=== PATIENT | male | born 1960 ===

== ENCOUNTER 2020-09-29 12:49 | Outpatient (CLI) | payer BC | END 2020-09-29 12:50 | disposition home or self-care (01) | LOC: CSHMRI 12:49 | PROVIDERS: ATTEND Orthopaedic Surgery | DX: M54.5 Low back pain (principal); M25.511 Pain in right shoulder ==

== ENCOUNTER 2022-03-23 13:07 | Outpatient (CLI) | payer BC | END 2022-03-23 13:08 | disposition home or self-care (01) | LOC: CSHLAB 13:07 | PROVIDERS: ATTEND Chiropractor | DX: Z20.822 Contact with and (suspected) exposure to COVID-19 (principal) | CPT/HCPCS: 87811 ==

== ENCOUNTER 2022-03-28 12:12 | Outpatient (CLI) | payer BC | END 2022-03-28 12:13 | disposition home or self-care (01) | LOC: CSHCP 12:12 | PROVIDERS: ATTEND Chiropractor | DX: I25.9 Chronic ischemic heart disease, unspecified (principal); R06.02 Shortness of breath; D64.9 Anemia, unspecified; E11.9 Type 2 diabetes mellitus without complications; R94.2 Abnormal results of pulmonary function studies | CPT/HCPCS: 71046; 93306; 94060; 94760 ==